=== PATIENT | female | born 1960 | race Caucasian/White ===

== ENCOUNTER 2017-05-04 18:24 | Inpatient (IN) | payer MEDICAID ==
[~2017-05-04] VITALS: Ht 154.9 cm; Wt 77.1 kg
[~2017-05-04 18:24] MED LIST: APAP/HYDROCODON1 T13 PO; ATENOLOL50 PO; COL100 PO; GLU850 PO; LOT20 PO; NEXIUM20 M PO; SYNTHROID PO; ZESTRIL20 MG PO
[2017-05-04 19:05] LABS: BASOPHIL % 0.5 % (0-2); PLATELET COUNT 240 x10^3mcL (130-400); RED CELL DISTRIBUTION WIDTH 13.5 % (11.5-14.5)
[2017-05-04 19:12] LABS: CALCIUM 8.4 mg/dL (8.5-10.1); CARBON DIOXIDE 25.5 mmol/L (21-32); CHLORIDE SERUM 102 mmol/L (98-107); CREATININE SERUM 0.7 mg/dL (0.6-1.0); GFR1 > 60 mL/min; GLUCOSE SERUM 145 mg/dL (74-106); POTASSIUM SERUM 4.4 mmol/L (3.5-5.1); SODIUM SERUM 138 mmol/L (136-145)
[2017-05-04 19:17] LABS: ALBUMIN 3.8 g/dL (3.4-5.0); ALKALINE PHOSPHATASE 81 U/L (46-116); ALT/SGPT 22 U/L (14-59); AST/SGOT 17 U/L (15-37); BILIRUBIN TOTAL 0.27 mg/dL (0.20-1.00); TOTAL PROTEIN, SERUM 7.3 g/dL (6.4-8.2)
[2017-05-04] MEDS ORDERED: BENAZEPRIL HYDR20 M1 PO (19:41)
[2017-05-04] MEDS ORDERED: GLUCOPHAGE XR500 MG PO (19:41)
[2017-05-04] MEDS ORDERED: ATENOLOL50 MG PO (19:41)
[2017-05-04] MEDS ORDERED: GLIPIZIDE5 M2 PO (19:42)
[2017-05-04] MEDS ORDERED: SYNTHROID0.088 MG PO (19:42)
[2017-05-04] MEDS ORDERED: PRILOSEC OTC20 M1 PO (19:42)
[2017-05-04 19:49] LABS: CK-MB 0.6 ng/mL (0-3.6)
[2017-05-04 20:26] LABS: MAGNESIUM 1.9 mg/dL (1.8-2.4)
[2017-05-04 20:33] LABS: T3 TOTAL 1.03 ng/mL
[2017-05-04 20:36] LABS: FREE T4 1.21 ng/dL (0.76-1.46); FREE THYROXINE INDEX 3.4 ug/dL (1.4-4.5); T4(THYROXINE) 9.6 ug/dL (4.7-13.3)
[2017-05-04 20:43] VITALS: BP 153/64
[2017-05-05] VITALS (8 sets, daily range): BP systolic 143–178; BP diastolic 58–85
[2017-05-05 12:51] LABS: microscopic required? NO
[2017-05-05 13:00] LABS: urine erythrocyte NEGATIVE (NEGATIVE)
[2017-05-05 13:30] LABS: AMPHETAMINE QUAL UR NONE DETECTED (NEG <=1000)
[2017-05-06 05:11] VITALS: BP 149/65
[2017-05-06 05:51] LABS: BASOPHIL % 0.1 % (0-2); PLATELET COUNT 232 x10^3mcL (130-400); RED CELL DISTRIBUTION WIDTH 13.6 % (11.5-14.5)
[2017-05-06 06:13] LABS: CALCIUM 8.9 mg/dL (8.5-10.1); CARBON DIOXIDE 26.4 mmol/L (21-32); CHLORIDE SERUM 93 mmol/L (98-107); CREATININE SERUM 0.7 mg/dL (0.6-1.0); GFR1 > 60 mL/min; GLUCOSE SERUM 129 mg/dL (74-106); MAGNESIUM 1.7 mg/dL (1.8-2.4); PHOSPHOROUS 4.4 mg/dL (2.5-4.9); POTASSIUM SERUM 4.1 mmol/L (3.5-5.1); SODIUM SERUM 129 mmol/L (136-145)
[2017-05-06 10:02] VITALS: BP 141/69
[2017-05-06] MEDS ORDERED: LOT20 PO (11:36)
[2017-05-06] MEDS ORDERED: LIPI10 PO (11:37)
[2017-05-06] MEDS ORDERED: NOR5 PO (11:38)
[2017-05-06] MEDS ORDERED: ECO81 PO (11:39)
== END 2017-05-06 13:30 | disposition home or self-care (01) | DRG 243 ==
LOC: ED 18:24 → DU 19:40
PROVIDERS: Emergency Medicine; ADMIT Family Medicine
DX: K21.9 Gastro-esophageal reflux disease without esophagitis (principal); N17.0 Acute kidney failure with tubular necrosis; D68.69 Other thrombophilia; E11.65 Type 2 diabetes mellitus with hyperglycemia; E11.59 Type 2 diabetes mellitus with other circulatory complications; F41.9 Anxiety disorder, unspecified; I11.9 Hypertensive heart disease without heart failure; E78.2 Mixed hyperlipidemia; E03.9 Hypothyroidism, unspecified; D64.9 Anemia, unspecified; E66.9 Obesity, unspecified; Z68.32 Body mass index [BMI] 32.0-32.9, adult; Z79.84 Long term (current) use of oral hypoglycemic drugs
CPT/HCPCS: 83880; 84439; 90732; J0360; J2270; J7030; Q0092

== ENCOUNTER 2017-05-09 18:27 | Emergency (ER) | payer MEDICAID ==
[~2017-05-09] VITALS: Ht 154.9 cm; Wt 70.5 kg
[~2017-05-09 18:27] MED LIST changes: +ATENOLOL50 MG PO; +BENAZEPRIL HYDR20 M1 PO; +ECO81 PO; +GLIPIZIDE5 M2 PO; +GLUCOPHAGE XR500 MG PO; +LIPI10 PO; +NOR5 PO; +PRILOSEC OTC20 M1 PO; +SYNTHROID0.088 MG PO
[2017-05-09 19:40] LABS: BASOPHIL % 0.3 % (0-2); PLATELET COUNT 253 x10^3mcL (130-400); RED CELL DISTRIBUTION WIDTH 13.5 % (11.5-14.5)
[2017-05-09 19:50] LABS: CALCIUM 8.6 mg/dL (8.5-10.1); CARBON DIOXIDE 22.9 mmol/L (21-32); CHLORIDE SERUM 99 mmol/L (98-107); CREATININE SERUM 0.8 mg/dL (0.6-1.0); GFR1 > 60 mL/min; GLUCOSE SERUM 172 mg/dL (74-106); POTASSIUM SERUM 3.9 mmol/L (3.5-5.1); SODIUM SERUM 134 mmol/L (136-145)
[2017-05-09 19:55] LABS: ALBUMIN 3.7 g/dL (3.4-5.0); ALKALINE PHOSPHATASE 81 U/L (46-116); ALT/SGPT 21 U/L (14-59); AST/SGOT 30 U/L (15-37); BILIRUBIN TOTAL 0.24 mg/dL (0.20-1.00); LIPASE 241 IU/L (73-393); TOTAL PROTEIN, SERUM 7.3 g/dL (6.4-8.2)
[2017-05-09 21:04] VITALS: BP 123/73
== END 2017-05-09 21:04 | disposition home or self-care (01) ==
LOC: ED 18:27
PROVIDERS: Emergency Medicine
DX: R07.89 Other chest pain (principal); R06.02 Shortness of breath; R61 Generalized hyperhidrosis; R51 Headache; I10 Essential (primary) hypertension; E11.9 Type 2 diabetes mellitus without complications; Z79.84 Long term (current) use of oral hypoglycemic drugs; Z79.899 Other long term (current) drug therapy
CPT/HCPCS: J1885; Q0092

== ENCOUNTER 2017-09-12 15:09 | Inpatient (IN) | payer MEDICAID ==
[~2017-09-12] VITALS: Ht 154.9 cm; Wt 71.8 kg
[2017-09-12 17:15] LABS: CALCIUM 9.2 mg/dL (8.5-10.1); CARBON DIOXIDE 29.2 mmol/L (21-32); CHLORIDE SERUM 96 mmol/L (98-107); CREATININE SERUM 0.7 mg/dL (0.6-1.0); GFR1 > 60 mL/min; GLUCOSE SERUM 95 mg/dL (74-106); POTASSIUM SERUM 4.1 mmol/L (3.5-5.1); SODIUM SERUM 134 mmol/L (136-145)
[2017-09-12 17:20] LABS: ALKALINE PHOSPHATASE 101 U/L (46-116); ALT/SGPT 19 U/L (14-59); AST/SGOT 17 U/L (15-37); BASOPHIL % 0.1 % (0-2); BILIRUBIN TOTAL 0.4 mg/dL (0.20-1.00); PLATELET COUNT 260 x10^3mcL (130-400); RED CELL DISTRIBUTION WIDTH 13.9 % (11.5-14.5)
[2017-09-12 17:21] LABS: TOTAL PROTEIN, SERUM 8.3 g/dL (6.4-8.2)
[2017-09-12] MEDS ORDERED: LISINOPRIL20 MG PO (18:32)
[2017-09-12] MEDS ORDERED: ZOLOFT25 MG PO (18:32)
[2017-09-12 19:36] LABS: CHOLESTEROL/HDL RATIO 3.8; PHOSPHOROUS 4.8 mg/dL (2.5-4.9)
[2017-09-12 19:40] LABS: T3 TOTAL 0.95 ng/mL
[2017-09-12 19:43] VITALS: BP 128/61
[2017-09-12 19:43] LABS: FREE T4 1.33 ng/dL (0.76-1.46); FREE THYROXINE INDEX 4.5 ug/dL (1.4-4.5); T4(THYROXINE) 12.4 ug/dL (4.7-13.3)
[2017-09-12] MEDS ORDERED: LOPRESSOR50 M1 PO (20:10)
[2017-09-12 21:38] VITALS: BP 128/61
[2017-09-13 06:46] VITALS: BP 130/56
[2017-09-13 07:21] LABS: microscopic required? NO
[2017-09-13 07:39] LABS: urine erythrocyte NEGATIVE (NEGATIVE)
[2017-09-13 07:53] LABS: AMPHETAMINE QUAL UR NONE DETECTED (NEG <=1000)
[2017-09-13 09:16] LABS: BASOPHIL % 0.2 % (0-2); PLATELET COUNT 238 x10^3mcL (130-400); RED CELL DISTRIBUTION WIDTH 13.6 % (11.5-14.5)
[2017-09-13 09:20] LABS: CALCIUM 8.9 mg/dL (8.5-10.1); CARBON DIOXIDE 29.1 mmol/L (21-32); CHLORIDE SERUM 98 mmol/L (98-107); CREATININE SERUM 0.8 mg/dL (0.6-1.0); GFR1 > 60 mL/min; GLUCOSE SERUM 197 mg/dL (74-106); POTASSIUM SERUM 4.5 mmol/L (3.5-5.1); SODIUM SERUM 134 mmol/L (136-145)
[2017-09-13 10:24] VITALS: BP 118/67
[2017-09-13 14:13] VITALS: BP 133/61
[2017-09-13 17:21] VITALS: BP 143/67
[2017-09-13 19:52] VITALS: BP 141/58
[2017-09-14 05:19] VITALS: BP 107/62
[2017-09-14 07:10] LABS: BASOPHIL % 0.3 % (0-2); PLATELET COUNT 219 x10^3mcL (130-400); RED CELL DISTRIBUTION WIDTH 13.4 % (11.5-14.5)
[2017-09-14 07:28] LABS: CALCIUM 8.7 mg/dL (8.5-10.1); CARBON DIOXIDE 28.4 mmol/L (21-32); CHLORIDE SERUM 103 mmol/L (98-107); CREATININE SERUM 0.7 mg/dL (0.6-1.0); GFR1 > 60 mL/min; GLUCOSE SERUM 100 mg/dL (74-106); PHOSPHOROUS 4.4 mg/dL (2.5-4.9); POTASSIUM SERUM 4.4 mmol/L (3.5-5.1); SODIUM SERUM 138 mmol/L (136-145)
[2017-09-14 10:22] VITALS: BP 144/53
[2017-09-14] MEDS ORDERED: MOT400 PO (14:23)
[2017-09-14 14:49] VITALS: BP 144/53
== END 2017-09-14 15:18 | disposition home or self-care (01) | DRG 203 ==
LOC: ED 15:09 → DU 18:30
PROVIDERS: Emergency Medicine; ADMIT Family Medicine Sports Medicine
DX: M94.0 Chondrocostal junction syndrome [Tietze] (principal); N17.0 Acute kidney failure with tubular necrosis; E11.65 Type 2 diabetes mellitus with hyperglycemia; D64.9 Anemia, unspecified; F41.9 Anxiety disorder, unspecified; K21.9 Gastro-esophageal reflux disease without esophagitis; I10 Essential (primary) hypertension; E87.1 Hypo-osmolality and hyponatremia; E78.5 Hyperlipidemia, unspecified; F11.10 Opioid abuse, uncomplicated; E66.3 Overweight; Z68.29 Body mass index [BMI] 29.0-29.9, adult
CPT/HCPCS: 83880; 84439; 85378; J1885; J7030

== ENCOUNTER 2017-09-17 19:16 | Emergency (ER) | payer MEDICAID ==
[~2017-09-17 19:16] MED LIST changes: +LISINOPRIL20 MG PO; +LOPRESSOR50 M1 PO; +MOT400 PO; +ZOLOFT25 MG PO
[2017-09-17 20:03] LABS: microscopic required? NO
[2017-09-17 20:10] LABS: BASOPHIL % 0.5 % (0-2); PLATELET COUNT 276 x10^3mcL (130-400); RED CELL DISTRIBUTION WIDTH 13.8 % (11.5-14.5)
[2017-09-17 20:12] LABS: urine erythrocyte NEGATIVE (NEGATIVE)
[2017-09-17 20:18] LABS: CALCIUM 8.9 mg/dL (8.5-10.1); CARBON DIOXIDE 30.8 mmol/L (21-32); CHLORIDE SERUM 99 mmol/L (98-107); CREATININE SERUM 0.8 mg/dL (0.6-1.0); GFR1 > 60 mL/min; GLUCOSE SERUM 105 mg/dL (74-106); POTASSIUM SERUM 4.2 mmol/L (3.5-5.1); SODIUM SERUM 136 mmol/L (136-145)
[2017-09-17 20:24] LABS: ALBUMIN 3.6 g/dL (3.4-5.0); ALKALINE PHOSPHATASE 92 U/L (46-116); ALT/SGPT 22 U/L (14-59); AST/SGOT 16 U/L (15-37); BILIRUBIN TOTAL 0.3 mg/dL (0.20-1.00); CHOLESTEROL 154 mg/dL (<200); HDL CHOLESTEROL 43 mg/dL (40-60); MAGNESIUM 1.8 mg/dL (1.8-2.4); TOTAL PROTEIN, SERUM 7.7 g/dL (6.4-8.2)
[2017-09-17 20:32] LABS: AMPHETAMINE QUAL UR NONE DETECTED (NEG <=1000)
[2017-09-18 00:17] VITALS: BP 130/76
== END 2017-09-18 00:17 | disposition home or self-care (01) ==
LOC: ED 19:16
PROVIDERS: Emergency Medicine
DX: I10 Essential (primary) hypertension (principal); E11.9 Type 2 diabetes mellitus without complications; E78.00 Pure hypercholesterolemia, unspecified; E66.9 Obesity, unspecified; E89.0 Postprocedural hypothyroidism; K21.9 Gastro-esophageal reflux disease without esophagitis; M19.90 Unspecified osteoarthritis, unspecified site; Z79.84 Long term (current) use of oral hypoglycemic drugs
CPT/HCPCS: 83880; J3490; Q0092

== ENCOUNTER 2017-09-23 13:54 | Emergency (ER) | payer MEDICAID ==
[~2017-09-23] VITALS: Ht 154.9 cm; Wt 68.6 kg
[2017-09-23 16:05] VITALS: BP 139/75
== END 2017-09-23 16:05 | disposition home or self-care (01) ==
LOC: ED 13:54
DX: G44.209 Tension-type headache, unspecified, not intractable (principal); I10 Essential (primary) hypertension; E11.9 Type 2 diabetes mellitus without complications; K21.9 Gastro-esophageal reflux disease without esophagitis; E78.00 Pure hypercholesterolemia, unspecified; Z90.49 Acquired absence of other specified parts of digestive tract
CPT/HCPCS: 20552; J2001

== ENCOUNTER 2019-03-20 15:02 | Emergency (ER) | payer MEDICAID ==
[~2019-03-20] VITALS: Ht 152.4 cm; Wt 70.3 kg
[2019-03-20 15:18] VITALS: Ht 152.4 cm; Wt 70.3 kg
[2019-03-20 15:55] VITALS: BP 110/70
== END 2019-03-20 15:55 | disposition home or self-care (01) ==
LOC: ED 15:02
DX: B34.9 Viral infection, unspecified (principal); J45.909 Unspecified asthma, uncomplicated; I10 Essential (primary) hypertension; E11.9 Type 2 diabetes mellitus without complications; E78.00 Pure hypercholesterolemia, unspecified; K21.9 Gastro-esophageal reflux disease without esophagitis; M19.90 Unspecified osteoarthritis, unspecified site

== ENCOUNTER 2019-04-06 17:12 | Emergency (ER) | payer MEDICAID ==
[~2019-04-06] VITALS: Ht 152.4 cm; Wt 71.8 kg
[2019-04-06 17:20] VITALS: BP 121/69; Ht 152.4 cm; Wt 71.8 kg
== END 2019-04-06 18:54 | disposition home or self-care (01) ==
LOC: ED 17:12
DX: H92.01 Otalgia, right ear (principal); I10 Essential (primary) hypertension; E11.9 Type 2 diabetes mellitus without complications; K21.9 Gastro-esophageal reflux disease without esophagitis; E78.00 Pure hypercholesterolemia, unspecified; M19.90 Unspecified osteoarthritis, unspecified site

== ENCOUNTER 2019-07-24 10:26 | Emergency (ER) | payer MEDICAID ==
[~2019-07-24] VITALS: Ht 154.9 cm; Wt 68.7 kg
[2019-07-24 10:39] VITALS: Ht 154.9 cm; Wt 68.7 kg
[2019-07-24 11:17] LABS: BASOPHIL % 0.3 % (0-2); PLATELET COUNT 311 x10^3mcL (130-400); RED CELL DISTRIBUTION WIDTH 13.8 % (11.5-14.5)
[2019-07-24 11:45] LABS: CALCIUM 8.9 mg/dL (8.5-10.1); CARBON DIOXIDE 27.5 mmol/L (21-32); CHLORIDE SERUM 99 mmol/L (98-107); GFR1 > 60 mL/min; GLUCOSE SERUM 147 mg/dL (74-106); POTASSIUM SERUM 4.4 mmol/L (3.5-5.1); SODIUM SERUM 135 mmol/L (136-145)
[2019-07-24 11:49] LABS: ALKALINE PHOSPHATASE 84 U/L (46-116); ALT/SGPT 21 U/L (14-59); AST/SGOT 17 U/L (15-37); BILIRUBIN TOTAL 0.3 mg/dL (0.20-1.00); TOTAL PROTEIN, SERUM 7.7 g/dL (6.4-8.2)
[2019-07-24 13:08] VITALS: BP 145/63
== END 2019-07-24 13:08 | disposition home or self-care (01) ==
LOC: ED 10:26
PROVIDERS: Emergency Medicine
DX: J45.901 Unspecified asthma with (acute) exacerbation (principal); D64.9 Anemia, unspecified; I10 Essential (primary) hypertension; E11.9 Type 2 diabetes mellitus without complications; E78.00 Pure hypercholesterolemia, unspecified; M19.90 Unspecified osteoarthritis, unspecified site; K21.9 Gastro-esophageal reflux disease without esophagitis
CPT/HCPCS: 36415; 83880; J7512

== ENCOUNTER 2019-09-18 15:29 | Emergency (ER) | payer MEDICAID ==
[~2019-09-18] VITALS: Ht 154.9 cm; Wt 68.9 kg
[2019-09-18 15:34] VITALS: Ht 154.9 cm; Wt 68.9 kg
[2019-09-18 16:49] LABS: BASOPHIL % 0.3 % (0-2); PLATELET COUNT 334 x10^3mcL (130-400); RED CELL DISTRIBUTION WIDTH 13.5 % (11.5-14.5)
[2019-09-18 16:50] VITALS: BP 97/53
[2019-09-18 17:26] LABS: ALBUMIN 4.2 g/dL (3.4-5.0); ALKALINE PHOSPHATASE 86 U/L (46-116); AST/SGOT 16 U/L (15-37); BILIRUBIN TOTAL 0.38 mg/dL (0.20-1.00); CALCIUM 8.9 mg/dL (8.5-10.1); CARBON DIOXIDE 25.1 mmol/L (21-32); CHLORIDE SERUM 95 mmol/L (98-107); GFR1 > 60 mL/min; GLUCOSE SERUM 118 mg/dL (74-106); POTASSIUM SERUM 5.5 mmol/L (3.5-5.1); SODIUM SERUM 130 mmol/L (136-145)
[2019-09-18 17:39] LABS: ALT/SGPT 24 U/L (14-59)
== END 2019-09-18 18:09 | disposition home or self-care (01) ==
LOC: ED 15:29
PROVIDERS: Emergency Medicine
DX: J45.909 Unspecified asthma, uncomplicated (principal); E11.65 Type 2 diabetes mellitus with hyperglycemia; I10 Essential (primary) hypertension; K21.9 Gastro-esophageal reflux disease without esophagitis; E78.00 Pure hypercholesterolemia, unspecified; M19.90 Unspecified osteoarthritis, unspecified site
CPT/HCPCS: 36415; 82962; 83880; J7620; Q0092

== ENCOUNTER 2020-05-08 20:37 | Emergency (ER) | payer MEDICAID ==
[~2020-05-08] VITALS: Ht 154.9 cm; Wt 71.2 kg
[2020-05-08 20:47] VITALS: Ht 154.9 cm; Wt 71.2 kg
[2020-05-08 21:28] LABS: BASOPHIL % 0.3 % (0-2); PLATELET COUNT 251 x10^3mcL (130-400); RED CELL DISTRIBUTION WIDTH 14.5 % (11.5-14.5)
[2020-05-08 21:29] LABS: UA SPECIFIC GRAVITY >=1.030 (1.005-1.035); microscopic required? YES; urine erythrocyte NEGATIVE (NEGATIVE)
[2020-05-08 21:43] LABS: CALCIUM 8.9 mg/dL (8.5-10.1); CARBON DIOXIDE 27.7 mmol/L (21-32); CREATININE SERUM 1.3 mg/dL (0.6-1.0); POTASSIUM SERUM 4.6 mmol/L (3.5-5.1)
[2020-05-08 21:47] LABS: ALBUMIN 4.2 g/dL (3.4-5.0); BILIRUBIN TOTAL 0.49 mg/dL (0.20-1.00); TOTAL PROTEIN, SERUM 7.7 g/dL (6.4-8.2)
[2020-05-08 22:20] VITALS: BP 130/51
== END 2020-05-08 22:20 | disposition home or self-care (01) ==
LOC: ED 20:37
PROVIDERS: Emergency Medicine
DX: E86.0 Dehydration (principal); N39.0 Urinary tract infection, site not specified; I10 Essential (primary) hypertension; E11.9 Type 2 diabetes mellitus without complications; K21.9 Gastro-esophageal reflux disease without esophagitis; M19.90 Unspecified osteoarthritis, unspecified site
CPT/HCPCS: 82962; J7030

== ENCOUNTER 2020-09-30 13:56 | Emergency (ER) | payer MEDICAID ==
[~2020-09-30] VITALS: Ht 154.9 cm; Wt 68.5 kg
[2020-09-30 14:17] VITALS: Ht 154.9 cm; Wt 68.5 kg
[2020-09-30 17:11] VITALS: BP 124/63
== END 2020-09-30 17:30 | disposition home or self-care (01) ==
LOC: ED 13:56
DX: S30.0XXA Contusion of lower back and pelvis, initial encounter (principal); I10 Essential (primary) hypertension; E11.9 Type 2 diabetes mellitus without complications; E03.9 Hypothyroidism, unspecified; K21.9 Gastro-esophageal reflux disease without esophagitis; E78.00 Pure hypercholesterolemia, unspecified; M19.90 Unspecified osteoarthritis, unspecified site; W01.0XXA Fall on same level from slipping, tripping and stumbling without subsequent striking against object, initial encounter; Y93.89 Activity, other specified; Y92.89 Other specified places as the place of occurrence of the external cause; Y99.8 Other external cause status

== ENCOUNTER 2020-12-30 20:43 | Emergency (ER) | payer MEDICAID ==
[~2020-12-30] VITALS: Ht 154.9 cm; Wt 69.9 kg
[2020-12-30 20:51] VITALS: Ht 154.9 cm; Wt 69.9 kg
[2020-12-30] MEDS ORDERED: NAPROSYN500 MG PO (22:48)
[2020-12-30 23:09] VITALS: BP 142/76
== END 2020-12-30 23:09 | disposition home or self-care (01) ==
LOC: ED 20:43
DX: M54.2 Cervicalgia (principal); M54.6 Pain in thoracic spine; I10 Essential (primary) hypertension; E11.9 Type 2 diabetes mellitus without complications; E78.00 Pure hypercholesterolemia, unspecified; M19.90 Unspecified osteoarthritis, unspecified site
CPT/HCPCS: J1885; Q0162